=== PATIENT | male | born 1950 | race Asian ===

== ENCOUNTER 2018-04-11 13:09 | Emergency (ER) | payer SELFPAY ==
[2018-04-11] MEDS ORDERED: NACL 0.9% 1000 ML 1,000 ML IV ONE ×3 (13:44→16:55)
--- NOTE | 2018-04-11 13:58 | Emergency Department Report ---
HPI - General Chief Complaint: Altered Mental Status Time Seen by Provider: 04/11/18 13:39 - HPI HPI: 67-year-old male presents to the emergency department via EMS from home with complaint of generalized weakness, dehydration, dizziness that has been going on for the past few days. 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 He denies any headache, visual change, slurred speech, chest pain. He has not taken anything for his symptoms prior to presentation. He denies any past medical history. He is a tobacco smoker but denies any illicit drug use. He does not have a primary care physician. He admits that he does not drink much water during the time he was working outside because the water "tastes and smells funny." No recent travel or sick contacts at home. ED Past Medical Hx - Past Medical History Previous Medical History?: Yes Additional medical history: dementia, - Surgical History Past Surgical History?: Yes Additional Surgical History: back surgery - Social History Smoking Status: Never Smoker Substance Use Type: None - Medications Home Medications: Home Medications Medication Instructions Recorded Confirmed Last Taken Type No Known Home Medications [No 04/11/18 04/11/18 Unknown History Reported Home Medications] ED Review of Systems ROS: Stated complaint: DEHYRDATION Other details as noted in HPI Constitutional: weakness. denies: fever Eyes: denies: eye pain, eye discharge, vision change ENT: denies: ear pain, throat pain Respiratory: denies: cough, shortness of breath, wheezing Cardiovascular: denies: chest pain, palpitations Gastrointestinal: nausea, vomiting. denies: abdominal pain Genitourinary: denies: urgency, dysuria Musculoskeletal: denies: back pain, joint swelling, arthralgia Skin: denies: rash, lesions Neurological: weakness. denies: headache Physical Exam - Physical Exam Physical Exam: GENERAL: The patient is well-developed well-nourished. HENT: Normocephalic. Atraumatic. Patient has moist mucous membranes. EYES: Extraocular motions are intact. Pupils equal reactive to light bilaterally. NECK: Supple. Trachea is midline. CHEST/LUNGS: Clear to auscultation. There is no respiratory distress noted. HEART/CARDIOVASCULAR: Regular. There is no tachycardia. There is no murmur. ABDOMEN: Abdomen is soft, nontender. Patient has normal bowel sounds. There is no abdominal distention. SKIN: Skin is warm and dry.. NEURO: The patient is awake, alert, and oriented. The patient is cooperative. The patient has no focal neurologic deficits. The patient has normal speech. Cranial nerves II through XII grossly intact. No pronator drift. No dysmetria. MUSCULOSKELETAL: There is no tenderness or deformity. There is no limitation range of motion. There is no evidence of acute injury. ED Medical Decision Making - Lab Data Result diagrams: 04/11/18 14:02 04/11/18 14:02 - EKG Data -: EKG Interpreted by [facility] EKG shows normal: sinus rhythm, axis, intervals, QRS complexes, ST-T waves Rate: normal - EKG Data When compared to previous EKG there are: previous EKG unavailable Interpretation: normal EKG - Radiology Data Radiology results: report reviewed CT HEAD WITHOUT CONTRAST: HISTORY: Weakness. TECHNIQUE: Sequential 2.5mm CT images. COMPARISON: none. FINDINGS: Cerebral Parenchyma: Within normal limits. Cerebellum: Within normal limits. Brainstem: Within normal limits. Ventricles: Normal. Sella: Normal. Extra-axial spaces: Normal. Basal Cisterns: Normal. Intracranial Hemorrhage: None. Midline Shift: None. Calvarium: Normal. Sinuses: Normal. Mastoid Air Cells: Normal. Visualized Orbits: Normal. IMPRESSION: Cranial CT scan within normal limits. Transcribed By: TTR Dictated By: JUAN ZEPEDA JR, MD Electronically Authenticated By: JUAN ZEPEDA JR, MD Signed Date/Time: 04/11/18 1542 - Medical Decision Making Patient presents to the emergency department with a complaint of some generalized weakness and fatigue and thinks that he has over exhausted and overworked himself. He does not have any focal, motor or sensory deficits and his cranial nerves are intact. CT of the head does not show any bleed, shift, mass or any other acute process. His labs show some mild dehydration with ketones in the urine. Urine drug screen positive for marijuana and amphetamines. Mild hyperkalemia that was replaced with potassium chloride. Otherwise the rest the labs are mostly unremarkable. The patient was given multiple liters of IV fluid resuscitation. Vital signs stable throughout his ED course including being afebrile. The patient both appears and feels improved. Prior to discharge the patient was ambulatory around the emergency department without any instability. We discussed increasing his oral rehydration. We discussed staying away from any further illicit drug use. He was given multiple referrals for primary care clinics in the area. He was encouraged to return to the emergency Department with any worsening of his symptoms or any acute distress. He understands and agrees to the plan. - Differential Diagnosis heat stroke, dehydration, dysrhythmia, polysubstance abuse, CVA Critical Care Time: No Critical care attestation.: If time is entered above; I have spent that time in minutes in the direct care of this critically ill patient, excluding procedure time. ED Disposition Clinical Impression: Generalized weakness, Dehydration, Tobacco use disorder Fatigue Qualifiers: Fatigue type: unspecified Qualified Code(s): R53.83 - Other fatigue Disposition: DC-01 TO HOME OR SELFCARE Is pt being admited?: No Condition: Stable Instructions: How to Stop Smoking (ED), Dehydration (ED), Weakness (ED) Additional Instructions: Please follow up with a primary care physician in the next few days if possible. Return to the emergency Department with any worsening of your symptoms or any acute distress. Increase your oral rehydration. Referrals: [facility] [Outside] - 3-5 Days [facility] [Outside] - 3-5 Days [facility] [Outside] - 3-5 Days [facility] [Outside] - 3-5 Days Time of Disposition: 18:43
[2018-04-11 14:25] LABS: Basophils % (Auto) 0.4 % (0.0-1.8); Eosinophils # (Auto) 0.1 K/mm3 (0.0-0.4); Eosinophils % (Auto) 1.2 % (0.0-4.3); Hemoglobin 13.7 gm/dl (11.8-15.2); Lymphocytes # (Auto) 1.5 K/mm3 (1.2-5.4); Lymphocytes % (Auto) 18.3 % (13.4-35.0); Mean Corpuscular HGB Conc 34 % (32-34); Mean Corpuscular Hemoglobin 32 pg (28-32); Mean Corpuscular Volume 93 fl (84-94); Monocytes # (Auto) 0.6 K/mm3 (0.0-0.8); Monocytes % (Auto) 7.7 % (0.0-7.3); Platelet Count 228 K/mm3 (140-440); Red Blood Count 4.28 M/mm3 (3.65-5.03); Red Cell Distribution Width 13.5 % (13.2-15.2)
[2018-04-11 14:49] LABS: Alanine Aminotransferase 10 units/L (7-56); Albumin 3.4 g/dL (3.9-5); BUN/Creatinine Ratio 22; Blood Urea Nitrogen 13 mg/dL (9-20); Calcium 8.6 mg/dL (8.4-10.2); Hemolysis Index 9
--- NOTE | 2018-04-11 15:48 | Cat Scan Report ---
CT HEAD WITHOUT CONTRAST: HISTORY: Weakness. TECHNIQUE: Sequential 2.5mm CT images. COMPARISON: none. FINDINGS: Cerebral Parenchyma: Within normal limits. Cerebellum: Within normal limits. Brainstem: Within normal limits. Ventricles: Normal. Sella: Normal. Extra-axial spaces: Normal. Basal Cisterns: Normal. Intracranial Hemorrhage: None. Midline Shift: None. Calvarium: Normal. Sinuses: Normal. Mastoid Air Cells: Normal. Visualized Orbits: Normal. IMPRESSION: Cranial CT scan within normal limits.
[2018-04-11] MEDS ORDERED: K-DUR PO ONE (16:04)
[2018-04-11 18:16] LABS: Bilirubin,Urine NEG (Negative); Blood,Urine NEG (Negative); Color,Urine Yellow (Yellow); Mucus,Urine 2+ /HPF; Protein,Urine <15 mg/dL mg/dL (Negative)
[2018-04-11 18:21] LABS: Benzodiazepines Screen,Urine PRESUMPTIVE NEGATIVE; Cocaine Screen,Urine PRESUMPTIVE NEGATIVE; Methadone Screen,Urine PRESUMPTIVE NEGATIVE; Opiate Screen,Urine PRESUMPTIVE NEGATIVE
[2018-04-11 18:37] LABS: Amphetamine Screen,Urine PRESUMPTIVE POSITIVE; Cannabinoid Screen,Urine PRESUMPTIVE POSITIVE
[2018-04-11 19:04] VITALS: BP 137/77
== END 2018-04-11 19:03 | disposition home or self-care (01) ==
LOC: EDBD → ED 13:09
DX: R53.1 Weakness (principal); E86.0 Dehydration; R53.83 Other fatigue; F03.90 Unspecified dementia, unspecified severity, without behavioral disturbance, psychotic disturbance, mood disturbance, and anxiety; Z72.0 Tobacco use
CPT/HCPCS: 36415; 70450; 80053; 80307; 81001; 82550; 84443; 84484; 85025; 93005; 93010; 96360; 96361; 99285; G0480; J7030; 80320